=== PATIENT | female | born 1995 | race Caucasian/White ===

== ENCOUNTER 2023-03-20 16:39 | Emergency (ER) | payer OTHER, BC ==
[2023-03-20] MEDS ORDERED: IBUPROFEN 600 MG TAB PO STA (16:59)
--- NOTE | 2023-03-20 17:01 | ED ---
Upper Extremity HPI - General Chief Complaint: Extremity Injury, Upper Stated Complaint: IHS-L shoulder injury Time Seen by Provider: 03/20/23 16:54 Source: patient, RN notes reviewed Mode of arrival: ambulatory Limitations: no limitations - History of Present Illness Initial Comments: Patient is a 27-year-old female presented to ER with chief complaint of left shoulder pain. 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 She also states that the student fell into her left shoulder. Patient reports that the symptoms that she's been having pain with radiation upon movement and tingling sensation. Patient denies any other injuries. - Related Data Allergies Allergy/AdvReac Type Severity Reaction Status Date / Time latex Allergy Rash/Hives Verified 03/20/23 16:52 Penicillins Allergy Rash/Hives Verified 03/20/23 16:52 Review of Systems ROS Statement: Those systems with pertinent positive or pertinent negative responses have been documented in the HPI. ROS Other: All systems not noted in ROS Statement are negative. Past Medical History Additional Past Medical History / Comment(s): herniation of disc Past Surgical History: No Surgical Hx Reported General Exam Limitations: no limitations General appearance: alert, in no apparent distress Head exam: Present: atraumatic, normocephalic, normal inspection Eye exam: Present: normal appearance, PERRL, EOMI. Absent: scleral icterus, conjunctival injection, periorbital swelling Respiratory exam: Present: normal lung sounds bilaterally. Absent: respiratory distress, wheezes, rales, rhonchi, stridor Cardiovascular Exam: Present: regular rate, normal rhythm, normal heart sounds. Absent: systolic murmur, diastolic murmur, rubs, gallop, clicks Extremities exam: Present: other (Left shoulder full range of motion. 2+ left radial pulse. Tenderness to shoulder blade and glenohumeral joint.) Back exam: Present: normal inspection Neurological exam: Present: alert, oriented X3, CN II-XII intact Psychiatric exam: Present: normal affect, normal mood Course Vital Signs 03/20/23 16:49 Temperature 98.7 F Pulse Rate 88 Respiratory 16 Rate Blood Pressure 128/85 O2 Sat by Pulse 97 Oximetry Medical Decision Making - Medical Decision Making Was pt. sent in by a medical professional or institution (Dr., PA, REAL ESTATE AGENT/BROKER, urgent care, hospital, or penitentiary...) When possible be specific @ -No Did you speak to anyone other than the patient for history (EMS, parent, family, police, friend...)? What history was obtained from this source @ -No Did you review nursing and triage notes (agree or disagree)? Why? @ -I reviewed and agree with nursing and triage notes Were old charts reviewed (outside hosp., previous admission, EMS record, old EKG, old radiological studies, urgent care reports/EKG's, penitentiary records)? Report findings @ -No old charts were reviewed Differential Diagnosis (chest pain, altered mental status, abdominal pain women, abdominal pain men, vaginal bleeding, weakness, fever, dyspnea, syncope, headache, dizziness, GI bleed, back pain, seizure, CVA, palpatations, mental health, musculoskeletal)? @ -Differential Musculoskeletal: Muscular strain, contusion, ligament sprain, fracture, arthritis, septic arthritis, bursitis, cellulitis, muscle spasm, nerve compression, DVT, arterial occlusion, herpes zoster, electrolyte abnormality, tumor.... This is not meant to be in all inclusive list EKG interpreted by me (3pts min.). @ -None X-rays interpreted by me (1pt min.). @ -X-ray of left shoulder shows no acute osseous abnormality. CT interpreted by me (1pt min.). @ -None done U/S interpreted by me (1pt. min.). @ -None done What testing was considered but not performed or refused? (CT, X-rays, U/S, labs)? Why? @ -None What meds were considered but not given or refused? Why? @ -None Did you discuss the management of the patient with other professionals (professionals i.e. GRAHAM Davey, REAL ESTATE AGENT/BROKER, lab, RT, psych nurse, sexual assault social worker, store clerk, teacher, special loan officer, cyanide case hardener)? Give summary @ -No Was smoking cessation discussed for >3mins.? @ -No Was critical care preformed (if so, how long)? @ -No Were there social determinants of health that impacted care today? How? (H omelessness, low income, unemployed, alcoholism, drug addiction, transportation, low edu. Level, literacy, decrease access to med. care, correction, rehab)? @ -No Was there de-escalation of care discussed even if they declined (Discuss DNR or withdrawal of care, Hospice)? DNR status @ -No What co-morbidities impacted this encounter? (DM, HTN, Smoking, COPD, CAD, Cancer, CVA, ARF, Chemo, Hep., AIDS, mental health diagnosis, sleep apnea, morbid obesity)? @ -None Was patient admitted / discharged? Hospital course, mention meds given and route, prescriptions, significant lab abnormalities, going to OR and other pertinent info. @ -Discharged. Patient is a 27 year old female presenting to the ER with a chief complaint of left shoulder injury. On examination, patient had full range of motion and 2+ left radial pulse. Patient was complaining of pain with motion and mild tingling sensation with motion as well. X-ray of left shoulder shows no acute osseous abnormality. Patient received by mouth ibuprofen for pain control in the ER. Patient be discharged in stable condition with follow-up to PCP. Return parameters were discussed. I discussed with patient if symptoms persist to follow-up with orthopedics. Patient expressed understanding and agreement with care plan. Undiagnosed new problem with uncertain prognosis? @ -No Drug Therapy requiring intensive monitoring for toxicity (Heparin, Nitro, Insulin, Cardizem)? @ -No Were any procedures done? @ -No Diagnosis/symptom? @ -Left shoulder injury Acute, or Chronic, or Acute on Chronic? @ -Acute Uncomplicated (without systemic symptoms) or Complicated (systemic symptoms)? @ -Uncomplicated Side effects of treatment? @ -No Exacerbation, Progression, or Severe Exacerbation? @ -No Poses a threat to life or bodily function? How? (Chest pain, USA, VT, pneumonia, PE, COPD, DKA, ARF, appy, cholecystitis, CVA, Diverticulitis, Homicidal, Suicidal, threat to staff... and all critical care pts) @ -No - Radiology Data Radiology results: report reviewed, image reviewed Disposition Clinical Impression: Injury of left shoulder Disposition: HOME SELF-CARE Condition: Stable Additional Instructions: Please return to the Emergency Department if symptoms worsen or any other concerns. Is patient prescribed a controlled substance at d/c from ED?: No Referrals: Nonstaff,Physician [Primary Care Provider] - 1-2 days Nico Garcia MD [STAFF PHYSICIAN] - 1-2 days Time of Disposition: 18:08
--- NOTE | 2023-03-20 18:01 | XR ---
EXAMINATION TYPE: XR shoulder complete 3 views LT DATE OF EXAM: 03/20/2023 Comparison: None Clinical History: 27-year-old female pain Findings: AC joint is intact. Subacromial space is preserved. No acute fracture, subluxation, dislocation. Impression: No acute osseous abnormality seen.
[2023-03-20 18:54] VITALS: BP 125/82; PULSE 65; RESP 18; TEMP 98.4
== END 2023-03-20 18:41 | disposition home or self-care (01) ==
LOC: EC 16:39
DX: S49.92XA Unspecified injury of left shoulder and upper arm, initial encounter (principal); Z88.0 Allergy status to penicillin; Z91.040 Latex allergy status; W19.XXXA Unspecified fall, initial encounter; Y93.67 Activity, basketball; Y92.310 Basketball court as the place of occurrence of the external cause; Y99.0 Civilian activity done for income or pay
CPT/HCPCS: 99283

== ENCOUNTER → 2023-03-23 | Outpatient (CLI) | payer OTHER ==
--- NOTE | 2023-03-23 12:55 | CT ---
EXAMINATION TYPE: CT cervical spine wo con DATE OF EXAM: 03/23/2023 COMPARISON: None HISTORY: numbness CT DLP: 593.7 mGycm CONTRAST: None CT of the cervical spine is performed in the axial plane at 2 mm thick sections. Reconstructed image s in the coronal, and sagittal plane are reviewed on the computer. No acute fractures are evident. Vertebral body alignment is normal. Disc heights are preserved. Vertebral body heights are preserved. No spinal canal stenosis is evident No neural foraminal stenosis is evident. IMPRESSION: 1. No acute osseous abnormality cervical spine.
--- NOTE | 2023-03-23 13:10 | XR ---
EXAMINATION TYPE: XR thoracic spine complete DATE OF EXAM: 03/23/2023 COMPARISON: NONE HISTORY: Pain TECHNIQUE: 3 views submitted FINDINGS: Alignment is anatomic. There is no compression deformities. Vertebral body height and disc interspa polina are maintained. IMPRESSION: 1. No acute abnormality. If symptoms persist consider MRI.
== END | disposition home or self-care (01) ==
LOC: RADCTMAIN 12:25
PROVIDERS: ATTEND Emergency Medicine
DX: S23.3XXA Sprain of ligaments of thoracic spine, initial encounter (principal); S13.4XXA Sprain of ligaments of cervical spine, initial encounter; R20.9 Unspecified disturbances of skin sensation; M54.6 Pain in thoracic spine
CPT/HCPCS: 72072; 72125

== ENCOUNTER → 2023-04-08 | Outpatient (CLI) | payer OTHER ==
--- NOTE | 2023-04-09 08:43 | MR ---
EXAMINATION TYPE: MR cervical spine wo con DATE OF EXAM: 04/08/2023 12:32 PM CLINICAL INDICATION:Female, 27 years old with history of S13.4XXD SPRAIN OF LIGAMENTS OF CERVICAL SPI NE, ALBERTO; PHH, Left shoulder pain/tingling S/P injury 3 weeks ago. COMPARISON: None. TECHNIQUE: Multi planar, multi sequence imaging was performed utilizing: T1-weighted, T2-weighted, an d turbo inversion recovery imaging of the cervical spine. IV Contrast: (none if empty) FINDINGS: Alignment: The cervical vertebral bodies have preserved heights. Alignment is within normal limits gi lamar patient positioning. Bones: Bone signal is within normal limits. No abnormal bone marrow edema on inversion recovery seque nces. Cord: The spinal cord is unremarkable with regards to their signal intensity and morphology. Discs: Intervertebral disc signal is maintained. C2-C3: No significant disc pathology. The spinal canal is patent. No neural foraminal stenosis. C3-C4: No significant disc pathology. The spinal canal is patent. No neural foraminal stenosis. C4-C5: No significant disc pathology. The spinal canal is patent. No neural foraminal stenosis. C5-C6: A disc osteophyte complex is present which minimally narrows the ventral subarachnoid space. Bilateral facet and uncovertebral joint arthropathy are present with mild right and minimal left deanna ral foraminal stenosis. C6-C7: No significant disc pathology. The spinal canal is patent. No neural foraminal stenosis. C7-T1: No significant disc pathology. The spinal canal is patent. No neural foraminal stenosis. Other: None. IMPRESSION: 1. No evidence for disc herniation or significant spinal canal stenosis. 2. Mild disc degeneration with associated osteoarthritic changes. No Significant neural foraminal markos nosis visualized.
== END | disposition home or self-care (01) ==
LOC: RADMRIMAIN 12:04
PROVIDERS: ATTEND Emergency Medicine
DX: S13.4XXD Sprain of ligaments of cervical spine, subsequent encounter (principal); M47.812 Spondylosis without myelopathy or radiculopathy, cervical region; M50.322 Other cervical disc degeneration at C5-C6 level
CPT/HCPCS: 72141